=== PATIENT | female | born 2000 | race African-American/Black ===

== ENCOUNTER 2020-10-14 08:51 | Emergency (ER) | payer OTHER ==
[2020-10-14 09:18] VITALS: BP 134/92; PULSE 110; BMI 44.2
== END 2020-10-14 12:49 | disposition home or self-care (01) ==
LOC: JER 08:51
DX: J06.9 Acute upper respiratory infection, unspecified (principal)
CPT/HCPCS: 99282-25; C9803; U0003

== ENCOUNTER 2021-01-28 08:55 | Emergency (ER) | payer OTHER ==
[2021-01-28 09:12] VITALS: BMI 38.2
[2021-01-28] MEDS ORDERED: IBUPROFEN 100 MG/5 ML UNIT DOSE CUPS PO ONE (10:00)
[2021-01-28] MEDS ORDERED: IBUPROFEN 100 MG/5 ML UNIT DOSE CUPS ONE (10:31)
[2021-01-28 10:54] LABS: BASO % 0.3 % (0-2.0); EOS % 1.6 % (0-4.5); LYMPH % 27.1 % (8-40); MCH 26.2 pg (25.7-33.7); MCHC 32.5 g/dl (32.0-36.0); MEAN CELL VOLUME 80.7 fl (80-96); MONO % 3.8 % (3.8-10.2); NEUT % 67.2 % (42.8-82.8); PLATELET COUNT 397 K/MM3 (134-434); RBC 3.84 M/mm3 (3.60-5.2); RDW 15.5 % (11.6-15.6); WHITE BLOOD COUNT 11.4 K/mm3 (4.0-10.0)
[2021-01-28 11:01] LABS: INR 1.04 (0.83-1.09); PROTHROMBIN TIME (PATIENT) 12.6 SEC (9.7-13.0)
[2021-01-28 11:10] LABS: CHLORIDE 107 mmol/L (98-107); POTASSIUM 3.6 mmol/L (3.5-5.1); SODIUM 138 mmol/L (136-145)
[2021-01-28 11:12] LABS: CALCIUM 8.8 mg/dL (8.5-10.1); HCG,QUALITATIVE URINE Negative
[2021-01-28 11:13] LABS: ALBUMIN 3.3 g/dl (3.4-5.0); ANION GAP 3 MMOL/L (8-16); BLOOD UREA NITROGEN 4.3 mg/dL (7-18); CO2 28 mmol/L (21-32); GLUCOSE,RANDOM 89 mg/dL (74-106)
[2021-01-28 11:16] LABS: CREATININE 0.6 mg/dL (0.55-1.3); SGOT/AST 9 U/L (15-37); SGPT/ALT 12 U/L (13-61)
[2021-01-28 11:17] LABS: BILIRUBIN,TOTAL 0.3 mg/dL (0.2-1); PH,URINE 6.5 (5.0-8.0); TOT PROT 7.1 g/dl (6.4-8.2); URINE APPEARANCE CLOUDY; URINE BILIRUBIN NEGATIVE (NEGATIVE); URINE COLOR YELLOW; URINE GLUCOSE (UA) NEGATIVE (NEGATIVE); URINE KETONE NEGATIVE (NEGATIVE); URINE LEUK ESTERASE NEGATIVE (NEGATIVE); URINE NITRITE NEGATIVE (NEGATIVE); URINE PROTEIN NEGATIVE (NEGATIVE)
[2021-01-28 11:19] LABS: ALK PHOS 69 U/L (45-117)
[2021-01-28 14:17] VITALS: BP 115/56; PULSE 76; TEMP 98
== END 2021-01-28 14:04 | disposition home or self-care (01) ==
LOC: JER 08:55
DX: R07.89 Other chest pain (principal)
CPT/HCPCS: 36415; 71046-TC-FY; 71275-TC; 80053; 81003; 82550; 84484; 84703; 85025; 85379; 85610; 87086; 93005; 93010; 99284-25; Q9967

== ENCOUNTER 2021-03-11 16:15 | Inpatient (IN) | payer OTHER ==
[2021-03-11] MEDS ORDERED: CLINDAMYCIN 600MG PREMIX IVPB 600 MG/50 ML BAG IVPB ONE ×2 (18:20→18:26)
[2021-03-11 18:26] LABS: BASO % 0.4 % (0-2.0); EOS % 0.6 % (0-4.5); HEMATOCRIT 29.9 % (32.4-45.2); HEMOGLOBIN 9.9 GM/dL (10.7-15.3); LYMPH % 19.9 % (8-40); MCH 25.9 pg (25.7-33.7); MEAN CELL VOLUME 78.6 fl (80-96); MEAN PLT VOLUME 7.7 fl (7.5-11.1); MONO % 5.1 % (3.8-10.2); PLATELET COUNT 490 K/MM3 (134-434); RBC 3.81 M/mm3 (3.60-5.2); RDW 15.2 % (11.6-15.6); WHITE BLOOD COUNT 16.3 K/mm3 (4.0-10.0)
[2021-03-11 18:31] LABS: INR 1.2 (0.83-1.09); PROTHROMBIN TIME (PATIENT) 14.5 SEC (9.7-13.0)
[2021-03-11 18:34] LABS: ACTIVATED PTT 28.8 SECONDS (25.2-36.5)
[2021-03-11 18:47] LABS: CALCIUM 8.9 mg/dL (8.5-10.1)
[2021-03-11 18:48] LABS: BLOOD UREA NITROGEN 9.3 mg/dL (7-18)
[2021-03-11 18:51] LABS: CREATININE 0.8 mg/dL (0.55-1.3)
[2021-03-11] MEDS ORDERED: oxyCODONE HCL 5 MG TABLET PO PRN (23:33)
[2021-03-11] MEDS ORDERED: ACETAMINOPHEN 325 MG TABLET (FP) PO PRN (23:33)
[2021-03-11] MEDS ORDERED: VANCOMYCIN HCL 1,500 MG in DEXTROSE 5%-WATER - 500 ML IVPB SCH (23:45)
[2021-03-11] MEDS ORDERED: SODIUM CHLORIDE 1,000 ML IV STA (23:48)
[2021-03-12] MEDS: VANCOMYCIN PREMIX 1.5 GM 1,500 MG/300 ML BAG IVPB SCH ×2 (01:59→14:33)
[2021-03-12] MEDS: SODIUM CHLORIDE 1,000 ML IV SCH (01:59)
[2021-03-12] MEDS ORDERED: ACETAMINOPHEN 650 MG/20.3 ML ORAL SOLUTION (CUPS) PO PRN (02:05)
[2021-03-12] MEDS ORDERED: ACETAMINOPHEN 650 MG/20.3 ML ORAL SOLUTION (CUPS) ONE (02:09)
[2021-03-12] MEDS ORDERED: diphenhydrAMINE HCL 12.5 MG/5 ML UNIT-DOSE CUPS PO ONE (02:42)
[2021-03-12] MEDS ORDERED: diphenhydrAMINE HCL 12.5 MG/5 ML BULK BOTTLE ONE (02:51)
[2021-03-12 04:55] VITALS: BMI 42.5
[2021-03-12 08:28] LABS: HEMATOCRIT 28.1 % (32.4-45.2); HEMOGLOBIN 9.1 GM/dL (10.7-15.3); MCH 25.6 pg (25.7-33.7); MCHC 32.2 g/dl (32.0-36.0); MEAN CELL VOLUME 79.4 fl (80-96); MEAN PLT VOLUME 7.6 fl (7.5-11.1); PLATELET COUNT 467 K/MM3 (134-434); RBC 3.54 M/mm3 (3.60-5.2); RDW 15.3 % (11.6-15.6)
[2021-03-12 08:54] LABS: ALBUMIN 2.8 g/dl (3.4-5.0); CALCIUM 8.3 mg/dL (8.5-10.1)
[2021-03-12 08:58] LABS: CREATININE 0.6 mg/dL (0.55-1.3); PHOSPHOROUS 4.3 mg/dL (2.5-4.9)
[2021-03-12 08:59] LABS: BILIRUBIN,TOTAL 0.4 mg/dL (0.2-1); TOT PROT 6.9 g/dl (6.4-8.2)
[2021-03-12] MEDS: DOCUSATE SODIUM 100 MG CAPSULE (FP) PO SCH (11:00)
[2021-03-12] MEDS ORDERED: IBUPROFEN 400 MG TABLET (FP) PO ONE (11:36)
[2021-03-12] MEDS ORDERED: PIPERACILLIN/TAZOBACTAM 4.5 GM VIAL IVPB ONE ×2 (12:20→17:33)
[2021-03-12] MEDS ORDERED: DEXTROSE 5%-WATER 100 ML IVPB ONE ×2 (12:20→17:33)
[2021-03-12] MEDS: PIPERACILLIN/TAZOB 4.5 GM 4.5 GM in DEXTROSE 5%-WATER 100 ML IVPB SCH ×2 (12:48→17:55)
[2021-03-12] MEDS: FERROUS SO4 325 MG TABLET (FP) PO SCH (12:50)
[2021-03-12] MEDS ORDERED: PT OWN MED DRAWER 7, Y5N ONE ×3 (13:20→17:34)
[2021-03-12] MEDS: VANCOMYCIN/WATER BAGS 1,250 MG/250 ML BAG IVPB SCH (14:52)
[2021-03-12] MEDS ORDERED: ALBUTEROL SO4 HFA INHALER IH PRN (16:15)
[2021-03-12] MEDS ORDERED: VANCOMYCIN/WATER BAGS 1,250 MG/250 ML BAG IVPB SCH (18:00)
[2021-03-13] MEDS ORDERED: PIPERACILLIN/TAZOBACTAM 4.5 GM VIAL IVPB ONE ×2 (00:12→09:20)
[2021-03-13] MEDS ORDERED: DEXTROSE 5%-WATER 100 ML IVPB ONE ×2 (00:12→09:21)
[2021-03-13] MEDS: PIPERACILLIN/TAZOB 4.5 GM 4.5 GM in DEXTROSE 5%-WATER 100 ML IVPB SCH ×2 (01:40→09:25)
[2021-03-13] MEDS: VANCOMYCIN/WATER BAGS 1,250 MG/250 ML BAG IVPB SCH ×2 (02:26→14:03)
[2021-03-13 07:43] LABS: HEMATOCRIT 25.4 % (32.4-45.2); HEMOGLOBIN 8.6 GM/dL (10.7-15.3); MCH 26.6 pg (25.7-33.7); MCHC 33.8 g/dl (32.0-36.0); MEAN CELL VOLUME 78.6 fl (80-96); MEAN PLT VOLUME 7.5 fl (7.5-11.1); PLATELET COUNT 445 K/MM3 (134-434); RBC 3.23 M/mm3 (3.60-5.2); RDW 15.3 % (11.6-15.6); WHITE BLOOD COUNT 12.9 K/mm3 (4.0-10.0)
[2021-03-13 07:51] LABS: CALCIUM 8.2 mg/dL (8.5-10.1)
[2021-03-13 07:52] LABS: ALBUMIN 2.6 g/dl (3.4-5.0); BLOOD UREA NITROGEN 8.7 mg/dL (7-18)
[2021-03-13 07:55] LABS: CREATININE 0.6 mg/dL (0.55-1.3)
[2021-03-13 07:56] LABS: BILIRUBIN,TOTAL 0.3 mg/dL (0.2-1); TOT PROT 6.5 g/dl (6.4-8.2)
[2021-03-13] MEDS: SODIUM CHLORIDE 1,000 ML IV SCH (09:23)
[2021-03-13] MEDS: DOCUSATE SODIUM 100 MG CAPSULE (FP) PO SCH (09:24)
[2021-03-13] MEDS: FERROUS SO4 325 MG TABLET (FP) PO SCH (09:24)
[2021-03-13] MEDS ORDERED: IBUPROFEN 400 MG TABLET (FP) PO PRN (09:34)
[2021-03-13] MEDS ORDERED: FLUTICASONE PROP 0.05% 16 GM NASAL SPRAY NS SCH (10:00)
[2021-03-13] MEDS ORDERED: LORATADINE 10 MG TABLET PO SCH (10:00)
[2021-03-13 14:13] VITALS: BP 112/72; PULSE 71; TEMP 98.1
[2021-03-13] MEDS ORDERED: PT OWN MED DRAWER 7, Y5N ONE (15:02)
== END 2021-03-13 18:22 | disposition home or self-care (01) | DRG 720 ==
LOC: JER 16:15 → JERBED 21:10 → J6S 03-12 03:30
PROVIDERS: ADMIT Hospitalist; ATTEND Internal Medicine
PROC: 0J990ZX Drainage of Buttock Subcutaneous Tissue and Fascia, Open Approach, Diagnostic (ICD-10-PCS; principal; 2021-03-12)
DX: A41.89 Other specified sepsis (principal); L05.01 Pilonidal cyst with abscess; D50.9 Iron deficiency anemia, unspecified; L03.317 Cellulitis of buttock; E66.01 Morbid (severe) obesity due to excess calories; Z68.41 Body mass index [BMI] 40.0-44.9, adult; N92.1 Excessive and frequent menstruation with irregular cycle; D72.829 Elevated white blood cell count, unspecified; L73.2 Hidradenitis suppurativa; J45.909 Unspecified asthma, uncomplicated
CPT/HCPCS: 36415; 71046-TC-FY; 74177-TC; 80048; 80053; 82728; 83036; 83540; 83550; 83605; 83735; 84100; 84703; 85025; 85027; 85610; 85651; 85730; 86140; 87040; 87070; 87077; 87186; 87205; 93005; 93010; 99285-25; C9803; Q9967; U0003; U0005